=== PATIENT | female | born 1940 | race Caucasian/White ===

== ENCOUNTER 2017-05-06 23:34 | Inpatient (IN) | payer BC ==
--- NOTE | ~2017-05-06 | HP ---
History And Physical [place] [id number] [facility] [place]. [address] NAME: YOLANDE MOJICA : 44 STATUS : ADM IN [facility]#: [id number] AGE: 76 ADM/REG DATE : 05/07/17 MR#: [id number] REPORT SERV DATE: 05/07/17 DICTATED BY: MAINOR ADAMS DATE: 05/07/17 REPORT STATUS : Draft TRANSCRIBED BY: MODL DATE: 05/07/17 DATE OF ADMISSION: 05/07/2017 CHIEF COMPLAINT: A 76-year-old female presenting with shortness of breath. HISTORY OF PRESENT ILLNESS: The patient's history was obtained through an interview with the patient and [id number] coupled with review of [facility] medical records. The patient states that just on the morning leading up to admission, she began to develop increasing shortness of breath characterized by dyspnea on exertion. She has noticed increasing nasal congestion for several days, which may have led to her breathing problem. She has had no cough. She describes lymphedema over the last few weeks, but today seemed to worsen. No change of bowel or bladder habit. No abdominal pain. No fevers or chills. No nausea or vomiting. No chest pain. The patient has no pain complaints at all. No headache. No abdominal pain. No back pain. REVIEW OF SYSTEMS: Otherwise, a 14-point review of systems was obtained and was negative. PAST MEDICAL HISTORY: 1. COPD. 2. Hypertension. 3. Hypothyroidism. 4. Lymphedema, left greater than right. 5. No cardiac disease. PAST SURGICAL HISTORY: 1. Thyroidectomy. 2. Hysterectomy with oophorectomy. ALLERGIES: PENICILLIN AND SULFA. SOCIAL HISTORY: The patient has been a very heavy smoker up to two packs per day, but quit about three years ago. Drinks rare glass of wine. Lives with her son. Lives in [place], [place]. Is . Has a total of two sons. FAMILY HISTORY: Father with peripheral arterial disease. CURRENT MEDICATIONS: Include albuterol inhaler, diltiazem extended release 180 mg daily, Advair inhaled twice a day, Lasix 40 mg p.o. daily, hydrochlorothiazide 25 mg daily, Advil, levothyroxine 75 mcg p.o. daily, potassium 20 mEq p.o. daily, Pravachol 40 mg p.o. daily, History And Physical [facility] [address] [place]. [address] NAME: YOLANDE MOJICA : 44 STATUS : ADM IN [facility]#: [id number] AGE: 76 ADM/REG DATE : 05/07/17 MR#: [id number] REPORT SERV DATE: 05/07/17 DICTATED BY: MAINOR ADAMS DATE: 05/07/17 REPORT STATUS : Draft TRANSCRIBED BY: AFTAB DATE: 05/07/17 nasal spray, Spiriva inhaled daily. PHYSICAL EXAMINATION: VITAL SIGNS: Temperature 98.2, pulse 105, blood pressure 147/71, respiratory rate 16, and O2 saturation 88% on 2 L nasal cannula, 93% on 3 L nasal cannula. GENERAL: An ill-appearing female, in evidence of distress secondary to shortness of breath. HEENT: Pupils equal, round, and reactive to light. No conjunctival pallor. No scleral icterus. Nares are patent. Oropharynx is clear of obstruction. Moist mucous membranes. NECK: Trachea midline. No thyromegaly. LYMPH: No cervical lymphadenopathy. No supraclavicular lymphadenopathy. RESPIRATORY: The patient has mostly "absent" breath sounds with poor air movement, some scattered expiratory wheeze with a prolonged expiratory phase. No rhonchi. No rales. The patient has a labored respiratory effort heaving with her shoulders to assist with breathing. CARDIOVASCULAR: Tachycardic. Regular rhythm. No murmurs, rubs, or gallops. The patient does have pitting lower extremity edema around the ankles and feet symmetrically. ABDOMEN: Soft, nontender, nondistended. Normal bowel sounds auscultated throughout. No hepatosplenomegaly. DERMATOLOGICAL: Warm and dry extremities. No pallor. No cyanosis. PSYCHIATRIC: Normal affect. Good mood. Alert and oriented x3. LABORATORY DATA: White blood cell count 12.3, hemoglobin 15, hematocrit 46, platelets 263. Sodium 138, potassium 2.9, chloride 93, bicarb 40, BUN 12, creatinine 0.66, glucose 111. Brain natriuretic peptide 47. Troponin negative. INR 0.9. STUDIES: 1. Chest x-ray by my own evaluation shows COPD changes, but nothing acute. 2. EKG by my own evaluation shows sinus tachycardia, right atrial abnormality. ASSESSMENT AND PLAN: 1. Hypoxemic respiratory failure. Provide supportive care. 2. Chronic obstructive pulmonary disease exacerbation. Place on IV Solu-Medrol, duo nebulizers. 3. Systemic inflammatory response syndrome. Check blood cultures. Start empiric IV antibiotics. Check procalcitonin. Check strep and Legionella. 4. Lymphedema. Check a venous Doppler ultrasound of lower extremities. Negative brain natriuretic peptide. 5. Hypokalemia. Replace potassium. Check magnesium. KPL/MODL Mainor Adams M.D. History And Physical [address] [address] NAME: YOLANDE MOJICA : 44 STATUS : ADM IN [facility]#: [id number] AGE: 76 ADM/REG DATE : 05/07/17 MR#: [id number] REPORT SERV DATE: 05/07/17 DICTATED BY: MAINOR ADAMS DATE: 05/07/17 REPORT STATUS : Draft TRANSCRIBED BY: AFTAB DATE: 05/07/17 / [id number] CC: Ronal Parada MD
--- NOTE | ~2017-05-06 | DS ---
Discharge Summary [facility] [address] [place]. [address] NAME: YOLANDE MOJICA : 44 STATUS : ADM IN [facility]#: [id number] AGE: 76 ADM/REG DATE : 05/07/17 MR#: [id number] REPORT SERV DATE: 05/09/17 DICTATED BY: CIRILO BARRIENTOS DATE: 05/09/17 REPORT STATUS : Draft TRANSCRIBED BY: MODL DATE: 05/09/17 ADMISSION DATE: 05/07/2017 DISCHARGE DATE: FINAL DIAGNOSES: 1. Acute on chronic hypoxic respiratory failure. 2. Chronic obstructive pulmonary disease exacerbation. 3. Status post hypokalemia. 4. Lymphedema. 5. Hypertension. 6. Hypothyroidism. DIAGNOSTIC EXAMS: Chest x-ray showing similar appearance of the chest with hyperinflation compatible with COPD or asthma. No acute infiltrate. Ultrasound of the lower extremity showing negative findings. Chest x-ray showing no acute process, no change. HOSPITAL COURSE: Please refer to the H and P done by Dr. Len Kovacs dated on 05/07/2017. Briefly, this is a 76-year-old female, who comes in for shortness of breath. The patient has a history of COPD on 2 L of oxygen. The patient has been having nasal congestion for several days, then started having some shortness of breath. She finally went to the emergency room and was diagnosed with acute respiratory failure secondary to COPD exacerbation. She was started on steroids, oxygen, and antibiotics. Chest x-ray and a repeat one did not show any pneumonia. The patient subsequently got better, and on discharge, she was saturating at 89% at the lowest, but most of it greater than 90% until 2 L on ambulation. The patient will now be discharged with the above diagnosis. She is going to follow up with her PCP, Ashley Pearl, in one to two weeks, and she will be given prescriptions for Duricef 500 mg twice a day for three more days and Medrol Dosepak starting tomorrow. She will continue her home medications of Diltiazem ER 180 mg a day, hydrochlorothiazide 25 mg a day, Synthroid 75 mcg once a day, Pravachol 40 mg a day, Advair 500/50 one puff twice a day, potassium 20 mEq every morning, albuterol q.4 hours p.r.n., Spiriva one capsule inhaled every morning, Lasix 40 mg p.r.n., [place] nasal spray. This has been explained to the patient. She agreed and understood the plan. DICTATED BY: Ronal Parada/AFTAB Cirilo Barrientos M.D. / [id number] CC: Discharge Summary [address] [address] NAME: YOLANDE MOJICA : 44 STATUS : ADM IN [facility]#: [id number] AGE: 76 ADM/REG DATE : 05/07/17 MR#: [id number] REPORT SERV DATE: 05/09/17 DICTATED BY: CIRILO BARRIENTOS DATE: 05/09/17 REPORT STATUS : Draft TRANSCRIBED BY: AFTAB DATE: 05/09/17 Ronal Parada MD
[2017-05-06 22:47] LABS: BASOPHILS 0.2 %; BASOPHILS ABSOLUTE 0.03 10/3/uL (0.0-0.16); EOSINOPHILS 0.4 %; EOSINOPHILS ABSOLUTE 0.05 10/3/uL (0.0-0.53); HEMATOCRIT 45.6 % (36.0-48.0); HEMOGLOBIN 15.5 g/dL (12.0-16.0); IMMATURE GRANULOCYTES 0.2 %; IMMATURE GRANULOCYTES ABSOLUTE 0.02 10/3/uL (0.0-0.11); LYMPHOCYTES 16.8 %; LYMPHOCYTES ABSOLUTE 2.07 10/3/uL (0.67-4.30); MANUAL DIFF NO %; MEAN CORPUSCULAR HEMOGLOB 30.1 pg (26.0-34.0); MEAN CORPUSCULAR VOLUME 88.5 fL (80-100); MEAN PLATELET VOLUME 10.4 fL (9.2-13.0); MONOCYTES 6.2 %; MONOCYTES ABSOLUTE 0.76 10/3/uL (0.21-1.20); NEUTROPHILS 76.2 %; NEUTROPHILS ABSOLUTE 9.36 10/3/uL (2.02-8.40); PLATELET COUNT 263 10/3/uL (150-400); RBC DISTRIBUTION WIDTH 12.5 % (12.0-16.0); RED CELL COUNT 5.15 10/6/uL (4.0-5.6); WHITE BLOOD CELLS 12.3 10/3/uL (4.5-10.5)
[2017-05-06 22:54] LABS: INTERNATIONAL NORMAL RATI 0.9 UNITS (-); PROTIME (NOT ORD) 12.3 SEC (12.0-14.5)
[2017-05-06 23:00] LABS: PARTIAL THROMBO TIME 22.6 SEC (22.5-37.2)
[2017-05-06 23:05] LABS: CHEST PAIN PROFILE TAT 0 Hrs 24 Mins; CHLORIDE, SERUM 93 MMOL/L (96-112); CREATININE 0.66 MG/DL (0.55-1.02); GFR AFRICAN AMERICAN 101 ML/MIN (>=60); GFR NON AFRICAN AMERICAN 87 ML/MIN (>=60); SODIUM, SERUM 138 MMOL/L (135-148); TROPONIN I <0.02 NG/ML (<0.05)
[2017-05-06 23:06] LABS: BUN (BLOOD UREA NITROGEN) 12 MG/DL (6-23); CALCIUM, SERUM 9.5 MG/DL (8.5-10.4); CO2 (CARBON DIOXIDE) 40 MMOL/L (24-34); GLUCOSE, SERUM 111 MG/DL (60-99); POTASSIUM, SERUM 2.9 MMOL/L (3.5-5.3)
[~2017-05-06 23:34] MED LIST: ADVAIR INH; ALBUTEROL5 INH; CARDCD180 PO; HCTZ25B PO; NICODERM C21 MG/241 TOP; PRAVACHOL40 MG PO; SPIRIVA INH; SYN1 PO; VENTOLIN HFA INH
[2017-05-07 00:14] LABS: PROCALCITONIN <0.05 ng/mL (<0.5)
[2017-05-07] MEDS ORDERED: CARTIA XT180 MG/24 PO (00:15)
[2017-05-07] MEDS ORDERED: KLOR-CON M2020 MEQ PO ×2 (00:15→00:16)
[2017-05-07] MEDS ORDERED: L40 PO (00:16)
[2017-05-07] MEDS ORDERED: HCTZ25B PO (00:16)
[2017-05-07] MEDS ORDERED: ADVAIR INH (00:16)
[2017-05-07] MEDS ORDERED: SPIRIVA INH (00:16)
[2017-05-07] MEDS ORDERED: ALBUTEROL0.083 % INH (00:16)
[2017-05-07] MEDS ORDERED: OCEAN NAS (00:17)
[2017-05-07] MEDS ORDERED: SYN075 PO (00:17)
[2017-05-07] MEDS ORDERED: PRAVACHOL40 MG PO (00:17)
[2017-05-07] MEDS ORDERED: ADVIL PO (00:25)
[2017-05-07 02:38] LABS: BASOPHILS 0.1 %; BASOPHILS ABSOLUTE 0.01 10/3/uL (0.0-0.16); EOSINOPHILS 0 %; HEMATOCRIT 39.6 % (36.0-48.0); HEMOGLOBIN 13.3 g/dL (12.0-16.0); IMMATURE GRANULOCYTES 0.1 %; IMMATURE GRANULOCYTES ABSOLUTE 0.02 10/3/uL (0.0-0.11); LYMPHOCYTES 2.8 %; LYMPHOCYTES ABSOLUTE 0.38 10/3/uL (0.67-4.30); MANUAL DIFF NO %; MEAN CORPUS HGB CONC 33.6 g/dL (32.0-36.0); MEAN CORPUSCULAR VOLUME 89.2 fL (80-100); MEAN PLATELET VOLUME 10.4 fL (9.2-13.0); MONOCYTES 0.7 %; NEUTROPHILS 96.3 %; NEUTROPHILS ABSOLUTE 13.17 10/3/uL (2.02-8.40); PLATELET COUNT 223 10/3/uL (150-400); RBC DISTRIBUTION WIDTH 12.4 % (12.0-16.0); RED CELL COUNT 4.44 10/6/uL (4.0-5.6); WHITE BLOOD CELLS 13.7 10/3/uL (4.5-10.5)
[2017-05-07 02:49] LABS: PROTIME (NOT ORD) 12.8 SEC (12.0-14.5)
[2017-05-07 02:51] LABS: PARTIAL THROMBO TIME 22.9 SEC (22.5-37.2)
[2017-05-07 02:59] LABS: A/G RATIO 1.3 (0.7-1.9); ALBUMIN 3.8 G/DL (3.5-5.0); BUN (BLOOD UREA NITROGEN) 15 MG/DL (6-23); CHLORIDE, SERUM 94 MMOL/L (96-112); CO2 (CARBON DIOXIDE) 36 MMOL/L (24-34); CREATININE 0.94 MG/DL (0.55-1.02); GFR AFRICAN AMERICAN 69 ML/MIN (>=60); GFR NON AFRICAN AMERICAN 60 ML/MIN (>=60); PHOSPHORUS, SERUM 2.5 MG/DL (2.5-4.5); SGOT(AST) 19 U/L (5-40); SGPT(ALT) 23 U/L (5-65); SODIUM, SERUM 138 MMOL/L (135-148); TOTAL PROTEIN 6.8 G/DL (6.0-8.5); TROPONIN I <0.02 NG/ML (<0.05)
[2017-05-07 03:00] LABS: ALKALINE PHOSPHATASE 92 U/L (45-117); CALCIUM, SERUM 8.4 MG/DL (8.5-10.4); GLUCOSE, SERUM 226 MG/DL (60-99); POTASSIUM, SERUM 2.6 MMOL/L (3.5-5.3); TOTAL BILIRUBIN 0.4 MG/DL (0-1.2); ULTRASENSITIVE TSH 0.742 MCIU/ML (0.358-3.740)
[2017-05-07 04:36] LABS: PROCALCITONIN <0.05 ng/mL (<0.5)
[2017-05-08 06:25] LABS: HEMATOCRIT 37.4 % (36.0-48.0); HEMOGLOBIN 12.5 g/dL (12.0-16.0); MEAN CORPUS HGB CONC 33.4 g/dL (32.0-36.0); MEAN CORPUSCULAR HEMOGLOB 29.8 pg (26.0-34.0); MEAN CORPUSCULAR VOLUME 89.3 fL (80-100); MEAN PLATELET VOLUME 10.7 fL (9.2-13.0); PLATELET COUNT 209 10/3/uL (150-400); RBC DISTRIBUTION WIDTH 12.7 % (12.0-16.0); RED CELL COUNT 4.19 10/6/uL (4.0-5.6)
[2017-05-08 06:26] LABS: MANUAL DIFF YES %; WHITE BLOOD CELLS 24.2 10/3/uL (4.5-10.5)
[2017-05-08 06:40] LABS: CALCIUM, SERUM 8.6 MG/DL (8.5-10.4); CHLORIDE, SERUM 100 MMOL/L (96-112); CREATININE 0.63 MG/DL (0.55-1.02); GFR AFRICAN AMERICAN 102 ML/MIN (>=60); GFR NON AFRICAN AMERICAN 88 ML/MIN (>=60); SODIUM, SERUM 137 MMOL/L (135-148)
[2017-05-08 06:42] LABS: BUN (BLOOD UREA NITROGEN) 20 MG/DL (6-23); CO2 (CARBON DIOXIDE) 30 MMOL/L (24-34); GLUCOSE, SERUM 134 MG/DL (60-99)
[2017-05-08 06:53] LABS: BAND NEUTROPHILS 2 %; LYMPHOCYTES 7 %; LYMPHOCYTES ABSOLUTE (CALC) 1.69 10/3/uL (0.67-4.30); MONOCYTES 6 %; MONOCYTES ABSOLUTE (CALC) 1.45 10/3/uL (0.21-1.20); NEUTROPHILS ABSOLUTE (CALC) 21.05 10/3/uL (2.02-8.40); PLATELET ESTIMATE ADQ (ADEQUATE); RBC MORPHOLOGY NORM (NORMAL); SEGMENTED NEUTROPHIL (0) 85 %; TOTAL NUCLEATED CELLS 100
[2017-05-09 06:38] LABS: BASOPHILS 0 %; EOSINOPHILS 0 %; EOSINOPHILS ABSOLUTE 0.01 10/3/uL (0.0-0.53); HEMATOCRIT 36.4 % (36.0-48.0); HEMOGLOBIN 12.1 g/dL (12.0-16.0); IMMATURE GRANULOCYTES 0.3 %; IMMATURE GRANULOCYTES ABSOLUTE 0.07 10/3/uL (0.0-0.11); LYMPHOCYTES 2.5 %; MEAN CORPUS HGB CONC 33.2 g/dL (32.0-36.0); MEAN CORPUSCULAR HEMOGLOB 29.6 pg (26.0-34.0); MEAN PLATELET VOLUME 11.1 fL (9.2-13.0); MONOCYTES 1.8 %; MONOCYTES ABSOLUTE 0.37 10/3/uL (0.21-1.20); NEUTROPHILS 95.4 %; NEUTROPHILS ABSOLUTE 19.22 10/3/uL (2.02-8.40); PLATELET COUNT 205 10/3/uL (150-400); RBC DISTRIBUTION WIDTH 12.9 % (12.0-16.0); RED CELL COUNT 4.09 10/6/uL (4.0-5.6); WHITE BLOOD CELLS 20.2 10/3/uL (4.5-10.5)
[2017-05-09 06:45] LABS: MANUAL DIFF NO %
[2017-05-09] MEDS ORDERED: DURICEF PO (10:56)
[2017-05-09] MEDS ORDERED: MEDROLPAK4 (10:56)
== END 2017-05-09 15:00 | disposition home or self-care (01) | DRG 189 ==
LOC: ER 23:34 → 7NO 05-07 00:14
PROVIDERS: Hospitalist; Internal Medicine; Nurse Practitioner
DX: J96.21 Acute and chronic respiratory failure with hypoxia (principal); J44.1 Chronic obstructive pulmonary disease with (acute) exacerbation; E87.6 Hypokalemia; E03.9 Hypothyroidism, unspecified; Z90.710 Acquired absence of both cervix and uterus; Z88.0 Allergy status to penicillin; Z88.2 Allergy status to sulfonamides; Z87.891 Personal history of nicotine dependence; Z79.51 Long term (current) use of inhaled steroids
CPT/HCPCS: 71010; 80048; 80053; 83735; 83880; 84100; 84132; 84145; 84443; 84484; 85025; 85610; 85730; 87040; 87077; 87150; 87186; 87449; 93005; 93970; 94640; 94644; 96374; 99285; A9270-GY; J0456; J2920; J2930